=== PATIENT | female | born 1995 | race Asian ===

== ENCOUNTER 2021-01-29 08:40 | Emergency (ER) | payer OTHER ==
[~2021-01-29] VITALS: Ht 160 cm; Wt 77.3 kg
[2021-01-29 08:51] VITALS: BP 115/78; TEMP 99.4
[2021-01-29] MEDS ORDERED: PROTONIX20 MG PO (09:36)
[2021-01-29 09:51] VITALS: PULSE 81
== END 2021-01-29 09:53 | disposition home or self-care (01) ==
LOC: COL.ER 08:40
DX: K29.70 Gastritis, unspecified, without bleeding (principal); G47.00 Insomnia, unspecified; F41.9 Anxiety disorder, unspecified; F32.9 Major depressive disorder, single episode, unspecified